=== PATIENT | male | born 1960 | race Caucasian/White ===

== ENCOUNTER 2016-08-07 06:47 | Inpatient (IN) | payer BC ==
[~2016-08-07] VITALS: Ht 179.1 cm; Wt 93.0 kg
[2016-08-07] VITALS (16 sets, daily range): BP systolic 111–140; RESP 13–28; TEMP 97.4–101.3; Ht 179.1 cm; Wt 93.0 kg
[2016-08-07] MEDS ORDERED: OPTIRAY 350 100 ML VIAL HMH IV ONE (06:48)
[2016-08-07] MEDS ORDERED: SODIUM CHLORIDE 0.9% 1,000 ML ONE (07:11)
[2016-08-07] MEDS ORDERED: MORPHINE 4 MG/ML SYR ONE (07:11)
[2016-08-07] MEDS ORDERED: ONDANSETRON 4 MG VIAL ONE (07:11)
[2016-08-07] MEDS ORDERED: DILAUDID 1 MG/ML AMP ONE (08:45)
[2016-08-07] MEDS ORDERED: LIDOCAINE 2% SYR 5 ML IV ONE (11:03)
[2016-08-07] MEDS ORDERED: ONDANSETRON 4 MG VIAL IV PUSH ONE (11:03)
[2016-08-07] MEDS ORDERED: DEXAMETHASONE 4 MG/ML VIAL IV ONE (11:03)
[2016-08-07] MEDS ORDERED: NEOSTIGMINE 10 MG/10 ML VIAL IV ONE (11:03)
[2016-08-07] MEDS ORDERED: ACETAMINOPHEN 1,000 MG/100 ML IV ONE (11:03)
[2016-08-07] MEDS ORDERED: DILAUDID 1 MG/ML AMP IV ONE (11:03)
[2016-08-07] MEDS ORDERED: PROPOFOL 20 ML VIAL IV ONE (11:03)
[2016-08-07] MEDS ORDERED: GLYCOPYRROLATE 0.2 MG/ML VIAL IV ONE ×2 (11:03→13:30)
[2016-08-07] MEDS ORDERED: ROCURONIUM 50 MG VIAL IV ONE (11:03)
[2016-08-07] MEDS ORDERED: BUPIVACA/EPI 0.25% PF 30ML NERVEBLOCK ONE (11:08)
[2016-08-07] MEDS ORDERED: FAMOTIDINE 20 MG INJ IV ONE ×2 (12:15→13:30)
[2016-08-07] MEDS ORDERED: MORPHINE 2 MG/ML SYR IV PRN ×3 (12:15→15:05)
[2016-08-07] MEDS ORDERED: SALINE FLUSH 10 ML FLUSH PRN ×2 (12:15→15:05)
[2016-08-07] MEDS ORDERED: SODIUM CHLORIDE 0.9% 1,000 ML IV SCH (12:15)
[2016-08-07] MEDS ORDERED: CEFAZOLIN 2,000 MG in SODIUM CHLORIDE 0.9% 100 ML IV ONE (12:15)
[2016-08-07] MEDS ORDERED: INDOCYANINE GREEN 25 MG VIAL IV ONE (12:45)
[2016-08-07] MEDS ORDERED: LIDOCAINE 1% BUFFERED 1 ML SYR INTRADERM PRN (13:30)
[2016-08-07] MEDS ORDERED: METOCLOPRAMIDE 10 MG/2 ML VIAL IV PUSH ONE (13:30)
[2016-08-07] MEDS ORDERED: ONDANSETRON 4 MG VIAL IV ONE (13:30)
[2016-08-07] MEDS ORDERED: MIDAZOLAM 2 MG/2 ML INJ IV ONE (13:30)
[2016-08-07] MEDS ORDERED: LACT RINGERS 1,000 ML IV SCH (13:30)
[2016-08-07] MEDS ORDERED: OXYCODONE 5 MG TAB PO PRN (14:40)
[2016-08-07] MEDS ORDERED: ONDANSETRON 4 MG VIAL IV PRN ×2 (14:40→15:05)
[2016-08-07] MEDS ORDERED: MEPERIDINE 25 MG/ML IV PRN (14:40)
[2016-08-07] MEDS ORDERED: DILAUDID 1 MG/ML AMP IV PRN (14:40)
[2016-08-07] MEDS ORDERED: MORPHINE 4 MG/ML SYR IV PRN (14:40)
[2016-08-07] MEDS: SODIUM CHLORIDE 0.9% 1,000 ML IV SCH (16:11)
[2016-08-07] MEDS: OXYCODONE 5 MG TAB PO PRN ×2 (16:33→23:42)
[2016-08-07] MEDS: PIPERACIL/TAZO 3.375GM/50ML 50 ML IV SCH ×2 (18:25→23:38)
[2016-08-07] MEDS: SALINE FLUSH 10 ML FLUSH SCH (20:07)
[2016-08-08] MEDS: SODIUM CHLORIDE 0.9% FLUSH BAG 500 ML IV SCH ×2 (03:18→19:35)
[2016-08-08 03:36] VITALS: BP_SYST 113; RESP 20; TEMP 98.9
[2016-08-08] MEDS: PIPERACIL/TAZO 3.375GM/50ML 50 ML IV SCH ×4 (05:59→23:06)
[2016-08-08] MEDS: OXYCODONE 5 MG TAB PO PRN ×4 (06:05→23:06)
[2016-08-08 07:11] VITALS: BP_SYST 134; RESP 18; TEMP 98.1
[2016-08-08] MEDS: SALINE FLUSH 10 ML FLUSH SCH ×2 (08:00→19:35)
[2016-08-08 11:26] VITALS: BP_SYST 134; RESP 16; TEMP 98.9
[2016-08-08 14:43] VITALS: BP_SYST 131; RESP 16; TEMP 98.1
[2016-08-08 19:15] VITALS: BP_SYST 123; RESP 18; TEMP 98.3
[2016-08-08] MEDS: FAMOTIDINE 20 MG TAB PO SCH (19:35)
[2016-08-08 22:50] VITALS: BP_SYST 143; RESP 16; TEMP 98.5
[2016-08-09 03:44] VITALS: BP_SYST 123; RESP 16; TEMP 99
[2016-08-09] MEDS: PIPERACIL/TAZO 3.375GM/50ML 50 ML IV SCH (05:27)
[2016-08-09] MEDS: SODIUM CHLORIDE 0.9% 1,000 ML IV SCH (05:27)
[2016-08-09] MEDS: OXYCODONE 5 MG TAB PO PRN ×2 (05:27→09:57)
[2016-08-09 07:15] VITALS: BP_SYST 121; RESP 16; TEMP 98.5
[2016-08-09] MEDS: FAMOTIDINE 20 MG TAB PO SCH (09:00)
[2016-08-09] MEDS: SALINE FLUSH 10 ML FLUSH SCH (09:05)
[2016-08-09 09:09] VITALS: BP_SYST 121; RESP 16; TEMP 98.5
== END 2016-08-09 10:52 | disposition home or self-care (01) | DRG 854 ==
LOC: ENRESERVTM → ENRESERVDT → ER 06:47 → SURG 12:14 → SDS 15:50 → 5THE 16:04
PROVIDERS: ADMIT Surgery; ATTEND Surgery
PROC: 0FT44ZZ Resection of Gallbladder, Percutaneous Endoscopic Approach (ICD-10-PCS; principal; 2016-08-07 14:08)
DX: A41.9 Sepsis, unspecified organism (principal); K80.00 Calculus of gallbladder with acute cholecystitis without obstruction; K21.9 Gastro-esophageal reflux disease without esophagitis
CPT/HCPCS: 36415; 74022; 74177; 76705; 80048; 80053; 81003; 82553; 83605; 83690; 84484; 85025; 87040; 88304; 93005; 94799; 96361; 96374; 96375